=== PATIENT | female | born 1955 | race Caucasian/White ===

== ENCOUNTER 2016-11-26 09:55 | Emergency (ER) | payer OTHER ==
[~2016-11-26] VITALS: Ht 170.2 cm; Wt 82.5 kg
[2016-11-26 10:19] VITALS: Ht 170.2 cm; Wt 82.5 kg
[2016-11-26] MEDS ORDERED: ONDANSETRON 4 MG INJ IV STA (11:55)
[2016-11-26] MEDS ORDERED: SOD CHLORIDE 0.9% 1,000 ML IV STA (11:55)
[2016-11-26] MEDS ORDERED: morphine 4 MG/ML VIAL IV STA (11:55)
[2016-11-26 12:46] LABS: BASOPHILS % 0.2 % (0.0-2.0); HEMATOCRIT 39.4 % (37.0-47.0); HEMOGLOBIN 13.8 g/dl (12.0-16.0); LYMPHOCYTES # 1.1 10^3/ul (0.8-2.9); LYMPHOCYTES % 8.6 % (15.0-51.0); MEAN CORPUSCULAR VOLUME 88.5 fl (82.0-101.0); MEAN PLATELET VOLUME 10.9 fl (7.4-10.4); MONOCYTE # 0.6 10^3/ul (0.3-0.9); MONOCYTES % 4.9 % (0.0-11.0); NEUTROPHILS % 85.9 % (39.0-77.0); PLATELET COUNT 185 10^3/UL (140-415); RED BLOOD COUNT 4.45 10^6/ul (4.20-5.40); RED CELL DISTRIBUTION WIDTH 11.7 % (11.5-14.5); WHITE BLOOD COUNT 12.5 10^3/ul (4.8-10.8)
--- NOTE | 2016-11-26 12:51 | RADRPT ---
PROCEDURE: Right Upper Quadrant Ultrasound. CLINICAL INDICATION: Abdominal Pain TECHNIQUE: Multiple real-time images were acquired of the patient's right upper quadrant abdomen a nd retroperitoneum utilizing a high resolution transducer. COMPARISON: None FINDINGS: The liver measures 16.3 cm, and demonstrates moderately increased echogenicity. The main portal vein is patent with proper directional flow. There is no intrahepatic biliary ductal dilatation. The ext rahepatic common bile duct measures 3 mm. The gallbladder is without stones, wall thickening, or pericholecystic fluid. The visualized pancreas is unremarkable. The right kidney measures 10.4 x 4.7 x 5.6 cm and demonstrates normal echotexture. There is no right renal calculus or hydronephrosis. The visualized abdominal aorta and IVC are grossly unremarkable. IMPRESSION: Mild hepatomegaly with moderate fatty infiltration. No cholelithiasis or acute cholecystitis. Normal CBD. RPTAT: EE Physician Nhi Date Time Electronically viewed and signed by Physician Nhi on 11/26/2016 12:51 /
[2016-11-26 13:13] LABS: ADD UMIC YES; ALANINE AMINOTRANSFERASE 32 IU/L (13-69); ALBUMIN 4.8 g/dl (3.3-4.9); ALBUMIN/GLOBULIN RATIO 1.23; ALKALINE PHOSPHATASE 71 IU/L (42-121); ASPARTATE AMINO TRANSFERASE 28 IU/L (15-46); BILIRUBIN,INDIRECT 0.6 mg/dl (0-1.1); BILIRUBIN,TOTAL 0.6 mg/dl (0.2-1.3); BLOOD UREA NITROGEN 16 mg/dl (7-20); CALCIUM 9.9 mg/dl (8.4-10.2); CARBON DIOXIDE 24 mmol/L (21-31); CHLORIDE 93 mmol/L (97-110); CREATININE 0.98 mg/dl (0.44-1.00); GLUCOSE 207 mg/dl (70-220); TOTAL PROTEIN 8.7 g/dl (6.1-8.1); UR ASCORBIC ACID NEGATIVE (NEGATIVE); UR BACTERIA FEW /HPF (NONE SEEN); UR BILIRUBIN (Dip) NEGATIVE (NEGATIVE); UR BLOOD (Dip) 1+ mg/dL (NEGATIVE); UR CLARITY SLIGHTLY CLOUDY (CLEAR); UR COLOR YELLOW (YELLOW); UR GLUCOSE (Dip) 1+ mg/dL (NEGATIVE); UR KETONES (Dip) 1+ mg/dL (NEGATIVE); UR LEUKOCYTE ESTERASE (Dip) 2+ Leu/ul (NEGATIVE); UR NITRITE (Dip) NEGATIVE (NEGATIVE); UR RBC 1 /HPF (0-5); UR SPECIFIC GRAVITY (Dip) 1.012 (1.003-1.030); UR SQUAMOUS EPITHELIAL CELL FEW /HPF (FEW); UR TOTAL PROTEIN (Dip) NEGATIVE (NEGATIVE); UR UROBILINOGEN (Dip) NEGATIVE (NEGATIVE); UR WBC CLUMPS FEW /HPF (NONE SEEN)
[2016-11-26 13:28] LABS: TROPONIN-I < 0.012 ng/ml (0.00-0.12)
[2016-11-26] MEDS ORDERED: CEPHALEXIN 500 MG CAP PO ONE (13:30)
[2016-11-26 13:31] LABS: ANION GAP 19 (8-16); POTASSIUM 3.4 mmol/L (3.5-5.1); SODIUM 133 mmol/L (135-144)
[2016-11-26] MEDS ORDERED: POTASSIUM CHLORIDE (SR) 20 MEQ TAB PO STA (13:39)
[2016-11-26] MEDS ORDERED: IBUP-1542 PO (13:40)
[2016-11-26] MEDS ORDERED: CEPH-443 PO (13:40)
[2016-11-26] MEDS ORDERED: ONDA4TAB14 PO (13:40)
--- NOTE | 2016-11-26 13:52 | ERD ---
ER Documentation Chief Complaint Date/Time DATE: 11/26/16 TIME: 13:49 Chief Complaint ap, n/v, fever, gomez, dizziness; symptoms started yesterday HPI Patient is a 60-year-old female with hypertension, diabetes, and high cholesterol who presents with abdominal pain and dizziness. The symptoms started yesterday morning. The patient has midepigastric abdominal pain which has been constant. She had subjective fever but has not taken her temperature. She is shivering. She has had vomiting but no diarrhea. She has had no treatment as of yet. Upon review of old medical records this is the patient's first visit to the emergency department. She says that her primary doctor is at the [facility]. ROS All systems reviewed and are negative except as per history of present illness. Medications Home Meds Active Scripts Ondansetron (Ondansetron Odt) 4 Mg Tab.rapdis, 4 MG PO Q6H Y for NAUSEA AND/OR VOMITING, #10 TAB Prov:CORAL HERNANDEZ MD 11/26/16 Ibuprofen* (Motrin*) 600 Mg Tab, 600 MG PO Q8, #30 TAB Prov:CORAL HERNANDEZ MD 11/26/16 Cephalexin* (Keflex*) 500 Mg Capsule, 500 MG PO QID for 7 Days, CAP Prov:CORAL HERNANDEZ MD 11/26/16 Allergies Allergies: Coded Allergies: No Known Allergy (Unverified , 11/26/16) PMhx/Soc History of Surgery: Yes (hysterectomy) Anesthesia Reaction: No Hx Neurological Disorder: No Hx Respiratory Disorders: No Hx Cardiac Disorders: Yes (htn, high cholesterol) Hx Psychiatric Problems: No Hx Miscellaneous Medical Probl: Yes (dm) Hx Alcohol Use: No Hx Substance Use: No Hx Tobacco Use: No Smoking Status: Never smoker FmHx Family History: diabetes Physical Exam Vitals Vital Signs Date Time Temp Pulse Resp B/P Pulse Ox O2 Delivery O2 Flow Rate FiO2 11/26/16 10:19 98.6 92 18 137/83 99 Physical Exam Const: Shivering Head: Atraumatic Eyes: Normal Conjunctiva ENT: Normal External Ears, Nose and Mouth. Neck: Full range of motion..~ No meningismus. Resp: Clear to auscultation bilaterally Cardio: Regular rate and rhythm, no murmurs Abd: Soft, Midepigastric tenderness to palpation without rebound or guarding Skin: No petechiae or rashes Back: No midline or flank tenderness Ext: No cyanosis, or edema Neur: Awake and alert Psych: Normal Mood and Affect Result Diagram: 11/26/16 1225 11/26/16 1225 Results 24 hrs Laboratory Tests Test 11/26/16 12:25 White Blood Count 12.510^3/ul Red Blood Count 4.4510^6/ul Hemoglobin 13.8g/dl Hematocrit 39.4% Mean Corpuscular Volume 88.5fl Mean Corpuscular Hemoglobin 31.0pg Mean Corpuscular Hemoglobin Concent 35.0g/dl Red Cell Distribution Width 11.7% Platelet Count 99509^3/UL Mean Platelet Volume 10.9fl Neutrophils % 85.9% Lymphocytes % 8.6% Monocytes % 4.9% Eosinophils % 0.0% Basophils % 0.2% Nucleated Red Blood Cells % 0.0/100WBC Neutrophils # (Manual) 10.710^3/ul Lymphocytes # 1.110^3/ul Monocytes # 0.610^3/ul Eosinophils # 0.010^3/ul Basophils # 0.010^3/ul Nucleated Red Blood Cells # 0.010^3/ul Urine Color YELLOW Urine Clarity SLIGHTLY CLOUDY Urine pH 5.0 Urine Specific [place] 1.012 Urine Ketones 1+mg/dL Urine Nitrite NEGATIVEmg/dL Urine Bilirubin NEGATIVEmg/dL Urine Urobilinogen NEGATIVEmg/dL Urine Leukocyte Esterase 2+Stephen/ul Urine Microscopic RBC 1/HPF Urine Microscopic WBC 22/HPF Urine Squamous Epithelial Cells FEW/HPF Urine Bacteria FEW/HPF Urine Hemoglobin 1+mg/dL Urine Glucose 1+mg/dL Urine Total Protein NEGATIVEmg/dl Sodium Level 133mmol/L Potassium Level 3.4mmol/L Chloride Level 93mmol/L Carbon Dioxide Level 24mmol/L Anion Gap 19 Blood Urea Nitrogen 16mg/dl Creatinine 0.98mg/dl Glucose Level 207mg/dl Calcium Level 9.9mg/dl Total Bilirubin 0.6mg/dl Direct Bilirubin 0.00mg/dl Indirect Bilirubin 0.6mg/dl Aspartate Amino Transf (AST/SGOT) 28IU/L Alanine Aminotransferase (ALT/SGPT) 32IU/L Alkaline Phosphatase 71IU/L Troponin I < 0.012ng/ml Total Protein 8.7g/dl Albumin 4.8g/dl Globulin 3.90g/dl Albumin/Globulin Ratio 1.23 Lipase 288U/L Current Medications Medications (Trade) Dose Ordered Sig/Ester Route PRN Reason Start Time Stop Time Status Last Admin Dose Admin Sodium Chloride (NS) 1,000 ml @ 1,000 mls/hr Q1H STAT IV 11/26/16 11:55 11/26/16 12:54 DC 11/26/16 12:22 Morphine Sulfate (morphine) 4 mg ONCE STAT IV 11/26/16 11:55 11/26/16 11:56 DC 11/26/16 12:22 Ondansetron HCl (Zofran Inj) 4 mg ONCE STAT IV 11/26/16 11:55 11/26/16 11:56 DC 11/26/16 12:22 Cephalexin (Keflex) 500 mg ONCE ONCE PO 11/26/16 13:30 11/26/16 13:31 DC Potassium Chloride (Klor-Con 20) 40 meq ONCE STAT PO 11/26/16 13:39 11/26/16 13:46 DC Acetaminophen (Tylenol Tab) 650 mg ONCE ONCE PO 11/26/16 14:00 11/26/16 14:01 Procedures/MDM PROCEDURE: Right Upper Quadrant Ultrasound. CLINICAL INDICATION: Abdominal Pain TECHNIQUE: Multiple real-time images were acquired of the patient's right upper quadrant abdomen and retroperitoneum utilizing a high resolution transducer. COMPARISON: None FINDINGS: The liver measures 16.3 cm, and demonstrates moderately increased echogenicity. The main portal vein is patent with proper directional flow. There is no intrahepatic biliary ductal dilatation. The extrahepatic common bile duct measures 3 mm. The gallbladder is without stones, wall thickening, or pericholecystic fluid. The visualized pancreas is unremarkable. The right kidney measures 10.4 x 4.7 x 5.6 cm and demonstrates normal echotexture. There is no right renal calculus or hydronephrosis. The visualized abdominal aorta and IVC are grossly unremarkable. IMPRESSION: Mild hepatomegaly with moderate fatty infiltration. No cholelithiasis or acute cholecystitis. Normal CBD. RPTAT: EE Jay Jay Duque, Physician Date Time Electronically viewed and signed by Jay Jay Duque, Physician on 11/26/2016 12:51 Patient is a 60-year-old female with diabetes and hypertension as well as high cholesterol who presents with abdominal pain and dizziness. She was found to have acute cystitis. She was also found to have a mildly elevated white blood cell count of 12.5 and a low potassium of 3.4. She was also found to have a mild low sodium. The patient was given normal saline fluid resuscitation, potassium by mouth, and Keflex by mouth. I did offer and recommend admission but the patient is refusing would prefer to go home at this time. I believe an outpatient treatment of antibiotics is reasonable at this time but a urine culture will be sent. I did tell the patient that she could return for any worsening symptoms or if she wanted to be admitted. At this point I doubt sepsis but the shivering was concerning for possible rigors which is why I wanted to admit her in the first place. I doubt cholecystitis, pancreatitis, appendicitis, or bowel obstruction. Departure Diagnosis: Primary Impression: Cystitis Additional Impression: Abdominal pain Abdominal location: epigastric Qualified Code: R10.13 - Epigastric pain Condition: Fair Patient Instructions: Abdominal Pain, Cystitis Referrals: Your doctor Additional Instructions: Llame al doctor MAANA y byron redd MARTÍN PARA DENTRO DE 1-2 JAVED.Dgale a la secretaria que nosotros le instruimos hacer esta martín.Avise o llame si bolaños condicin se empeora antes de la martín. Regresa aqui si peor o no mejor. CORAL HERNANDEZ MD Nov 26, 2016 13:52
[2016-11-26] MEDS ORDERED: ACETAMINOPHEN 325 MG TAB PO ONE (14:00)
[2016-11-26 14:25] VITALS: BP 158/95; PULSE 98; RESP 17; TEMP 99
== END 2016-11-26 14:26 | disposition home or self-care (01) ==
LOC: E/R 09:55
DX: N30.90 Cystitis, unspecified without hematuria (principal); E11.9 Type 2 diabetes mellitus without complications; I10 Essential (primary) hypertension
CPT/HCPCS: 36415; 76705; 80053; 81001; 83690; 84484; 85025; 87086; 96374; 96375; 99285; J2270; J2405; J7030

== ENCOUNTER 2016-11-28 09:18 | Emergency (ER) | payer OTHER ==
[~2016-11-28] VITALS: Ht 165.1 cm; Wt 85.0 kg
[~2016-11-28 09:18] MED LIST: CEPH-443 PO; IBUP-1542 PO; ONDA4TAB14 PO
[2016-11-28 09:21] VITALS: Ht 165.1 cm; Wt 85.0 kg
--- NOTE | 2016-11-28 10:50 | ERD ---
ER Documentation Chief Complaint Date/Time DATE: 11/28/16 TIME: 10:46 Chief Complaint loss of appetite x 1 week; feels dizzy HPI Patient is a 60-year-old female who presents to the ER with gradual onset, constant, moderate dizziness that she describes as feeling like her balance is off for the last 3 days. She was seen in the ER 2 days ago and diagnosed with urinary tract infection. She was prescribed antibiotics, but states that her symptoms have not improved. She denies fever. She reports having vomiting on her initial ER visit, but states that she has not had any further vomiting since discharge. She denies headache, double vision, focal weakness or numbness. She denies hearing loss or tinnitus. She denies abdominal pain. ROS All systems reviewed and are negative except as per history of present illness. Medications Home Meds Active Scripts Meclizine Hcl* (Meclizine Hcl*) 25 Mg Tablet, 25 MG PO Q8H Y for DIZZINESS, #21 TAB Prov:ALEJANDRA PENA MD 11/28/16 Ondansetron (Ondansetron Odt) 4 Mg Tab.rapdis, 4 MG PO Q6H Y for NAUSEA AND/OR VOMITING, #10 TAB Prov:CORAL HERNANDEZ MD 11/26/16 Ibuprofen* (Motrin*) 600 Mg Tab, 600 MG PO Q8, #30 TAB Prov:CORAL HERNANDEZ MD 11/26/16 Cephalexin* (Keflex*) 500 Mg Capsule, 500 MG PO QID for 7 Days, CAP Prov:CORAL HERNANDEZ MD 11/26/16 Allergies Allergies: Coded Allergies: No Known Allergy (Unverified , 11/26/16) PMhx/Soc Past medical history: Diabetes mellitus, hypertension Past surgical history: Denies Social history: Denies tobacco or alcohol History of Surgery: No Anesthesia Reaction: No Hx Neurological Disorder: No Hx Respiratory Disorders: No Hx Cardiac Disorders: No Hx Psychiatric Problems: No Hx Miscellaneous Medical Probl: No Hx Alcohol Use: No Hx Substance Use: No Hx Tobacco Use: No Smoking Status: Never smoker FmHx Family History: No coronary disease, No diabetes Physical Exam Vitals Vital Signs Date Time Temp Pulse Resp B/P Pulse Ox O2 Delivery O2 Flow Rate FiO2 11/28/16 09:21 98.6 90 18 150/93 97 Physical Exam Const: Alert, no acute distress Head: Atraumatic Eyes: Normal Conjunctiva, No pallor, no icterus ENT: Normal External Ears, Nose and Mouth. Mucous membranes moist.Normal tympanic membranes bilaterally. Neck: Full range of motion..~ No meningismus. Resp: Clear to auscultation bilaterally, No wheezes, no rales Cardio: Regular rate and rhythm, no murmurs Abd: Soft, non tender, non distended. Skin: No petechiae or rashes Back: No midline or flank tenderness Ext: No cyanosis, or edema Neur: Awake and alert, Cranial nerves II through XII intact bilaterally, strength and sensation full in 4 extremities, no pronator drift, no dysmetria, no nystagmus, extraocular movements intact without diplopia Psych: Normal Mood and Affect Result Diagram: 11/28/16 1125 Results 24 hrs Laboratory Tests Test 11/28/16 10:49 11/28/16 11:25 11/28/16 14:10 Urine Color YELLOW Urine Clarity CLEAR Urine pH 5.5 Urine Specific [place] 1.010 Urine Ketones NEGATIVEmg/dL Urine Nitrite NEGATIVEmg/dL Urine Bilirubin NEGATIVEmg/dL Urine Urobilinogen 0.2 E.U./dLmg/dL Urine Leukocyte Esterase TRACELeu/ul Urine Microscopic RBC 2-5/HPF Urine Microscopic WBC 10-25/HPF Urine Squamous Epithelial Cells FEW/HPF Urine Hemoglobin TRACEmg/dL Urine Glucose 1+mg/dL Urine Total Protein NEGATIVEmg/dl Sodium Level 137mmol/L Potassium Level 3.3mmol/L Chloride Level 102mmol/L Carbon Dioxide Level 21mmol/L Anion Gap 17 Blood Urea Nitrogen 15mg/dl Creatinine 0.98mg/dl Glucose Level 275mg/dl Calcium Level 9.7mg/dl Bedside Glucose 217mg/dL Current Medications Medications (Trade) Dose Ordered Sig/Ester Route PRN Reason Start Time Stop Time Status Last Admin Dose Admin Meclizine HCl (Antivert) 25 mg ONCE ONCE PO 11/28/16 11:00 11/28/16 11:01 DC 11/28/16 11:14 Potassium Chloride (Klor-Con 20) 20 meq ONCE STAT PO 11/28/16 12:25 11/28/16 12:32 DC 11/28/16 13:19 Insulin Human Regular (Humulin R) 5 unit ONCE ONCE SC 9/14/17 12:30 11/28/16 12:32 DC Miscellaneous Information 1 ea NOTE XX 11/28/16 13:00 Glucose (Glutose) 15 gm Q15M PRN PO DECREASED GLUCOSE 11/28/16 13:00 Glucose (Glutose) 22.5 gm Q15M PRN PO DECREASED GLUCOSE 11/28/16 13:00 Dextrose (D50w Syringe) 25 ml Q15M PRN IV DECREASED GLUCOSE 11/28/16 13:00 Dextrose (D50w Syringe) 50 ml Q15M PRN IV DECREASED GLUCOSE 11/28/16 13:00 Glucagon (Glucagen) 1 mg Q15M PRN IM DECREASED GLUCOSE 11/28/16 13:00 Glucose 15 gm 15 gm Q15M PRN BUCCAL DECREASED GLUCOSE 11/28/16 13:00 Sodium Chloride (NS) 1,000 ml @ 1,000 mls/hr Q1H ONCE IV 11/28/16 13:30 11/28/16 14:29 DC 11/28/16 14:02 Procedures/MDM MDM: Patient is a 60-year-old female who presents with dizziness described as loss of balance in the setting of urinary tract infection diagnosed 2 days ago. She is on Keflex. She denies fever vomiting. She denies headache or other neurological symptoms and has no neurologic deficits. Her labs are unremarkable except for hyperglycemia and mild hypokalemia. The patient states that she has not taken her diabetic medication for the last 3 days, but that she has a supply at home. She was encouraged to take all of her medications as prescribed. In the ER, she was given a dose of meclizine and a liter of fluid and states that her symptoms have resolved. There are no signs of sepsis or features that are concerning for a central etiology of vertigo. The patient has no associated tinnitus or loss of hearing. She is advised to follow-up closely with her PMD. Departure Diagnosis: Primary Impression: Vertigo Additional Impression: Hypokalemia Condition: ALEJANDRA Mehta MD Nov 28, 2016 10:50
[2016-11-28] MEDS ORDERED: MECLIZINE 12.5 MG TAB PO ONE (11:00)
[2016-11-28 11:45] LABS: UR CLARITY CLEAR (CLEAR); UR COLOR YELLOW (YELLOW)
[2016-11-28 11:46] LABS: ADD UMIC YES; UR BILIRUBIN (Dip) NEGATIVE (NEGATIVE); UR BLOOD (Dip) TRACE mg/dL (NEGATIVE); UR GLUCOSE (Dip) 1+ mg/dL (NEGATIVE); UR KETONES (Dip) NEGATIVE (NEGATIVE); UR LEUKOCYTE ESTERASE (Dip) TRACE Leu/ul (NEGATIVE); UR NITRITE (Dip) NEGATIVE (NEGATIVE); UR TOTAL PROTEIN (Dip) NEGATIVE (NEGATIVE); UR UROBILINOGEN (Dip) 0.2 E.U./dL mg/dL (NEGATIVE)
[2016-11-28 11:48] LABS: UR SQUAMOUS EPITHELIAL CELL FEW /HPF (FEW)
[2016-11-28 11:58] LABS: CALCIUM 9.7 mg/dl (8.4-10.2); CREATININE 0.98 mg/dl (0.44-1.00); POTASSIUM 3.3 mmol/L (3.5-5.1)
[2016-11-28] MEDS ORDERED: POTASSIUM CHLORIDE (SR) 20 MEQ TAB PO STA (12:25)
[2016-11-28] MEDS ORDERED: INSULIN REGULAR, HUMAN 100 UNIT/1 ML 3ML VIAL SC ONE (12:30)
[2016-11-28] MEDS ORDERED: GLUCAGON 1 MG INJ IM PRN (13:00)
[2016-11-28] MEDS ORDERED: GLUCOSE GEL 15 GRAM TUBE BUCCAL PRN (13:00)
[2016-11-28] MEDS ORDERED: GLUCOSE GEL 15 GRAM TUBE PO PRN ×2 (13:00)
[2016-11-28] MEDS ORDERED: DEXTROSE 50% 50 ML SYRINGE IV PRN ×2 (13:00)
[2016-11-28] MEDS ORDERED: SOD CHLORIDE 0.9% 1,000 ML IV ONE (13:30)
[2016-11-28] MEDS ORDERED: MECL-77 PO (14:26)
[2016-11-28 14:59] VITALS: BP 185/91; PULSE 91; RESP 20; TEMP 98.3
== END 2016-11-28 15:01 | disposition home or self-care (01) ==
LOC: E/R 09:18
DX: R42 Dizziness and giddiness (principal); E87.6 Hypokalemia; E11.9 Type 2 diabetes mellitus without complications; I10 Essential (primary) hypertension
CPT/HCPCS: 80048; 81001; 82962; 87086; 99284; J7030

== ENCOUNTER 2016-12-09 18:22 | Inpatient (IN) | payer OTHER ==
[~2016-12-09] VITALS: Ht 170.2 cm; Wt 85.6 kg
[~2016-12-09 18:22] MED LIST changes: +MECL-77 PO
[2016-12-09] MEDS ORDERED: GLIP-95 PO (21:53)
[2016-12-09] MEDS ORDERED: LISI40TA9 PO (21:53)
[2016-12-09] MEDS ORDERED: SIMV20TA PO (21:54)
[2016-12-09] MEDS ORDERED: SITA1TAB5 PO (21:55)
[2016-12-09] MEDS ORDERED: ASPI81TA50 PO (21:55)
[2016-12-09 22:34] LABS: ALANINE AMINOTRANSFERASE 37 IU/L (13-69); ALBUMIN 4.6 g/dl (3.3-4.9); ALBUMIN/GLOBULIN RATIO 1.24; ALKALINE PHOSPHATASE 76 IU/L (42-121); ANION GAP 15 (8-16); ASPARTATE AMINO TRANSFERASE 25 IU/L (15-46); BILIRUBIN,INDIRECT 0.3 mg/dl (0-1.1); BILIRUBIN,TOTAL 0.3 mg/dl (0.2-1.3); BLOOD UREA NITROGEN 17 mg/dl (7-20); CARBON DIOXIDE 26 mmol/L (21-31); CHLORIDE 82 mmol/L (97-110); CREATININE 0.72 mg/dl (0.44-1.00); GLUCOSE 142 mg/dl (70-220); POTASSIUM 3.6 mmol/L (3.5-5.1); TOTAL PROTEIN 8.3 g/dl (6.1-8.1)
[2016-12-09 22:59] LABS: TROPONIN-I < 0.012 ng/ml (0.00-0.12)
[2016-12-09 23:01] LABS: SODIUM 119 mmol/L (135-144)
[2016-12-09] MEDS ORDERED: SOD CHLORIDE 0.9% 500 ML IV STA (23:02)
[2016-12-09 23:03] LABS: BASOPHIL # 0.1 10^3/ul (0.0-0.1); BASOPHILS % 0.5 % (0.0-2.0); EOSINOPHILS # 0.1 10^3/ul (0.0-0.5); EOSINOPHILS % 1.2 % (0.0-7.0); HEMATOCRIT 35.8 % (37.0-47.0); HEMOGLOBIN 13.3 g/dl (12.0-16.0); LYMPHOCYTES # 2.7 10^3/ul (0.8-2.9); LYMPHOCYTES % 22.2 % (15.0-51.0); MEAN CORPUSCULAR HGB CONC 37.2 g/dl (32.0-37.0); MEAN CORPUSCULAR VOLUME 86.1 fl (82.0-101.0); MEAN PLATELET VOLUME 10.2 fl (7.4-10.4); MONOCYTE # 0.9 10^3/ul (0.3-0.9); MONOCYTES % 7.2 % (0.0-11.0); NEUTROPHIL # 8.3 10^3/ul (1.6-7.5); NEUTROPHILS % 68.4 % (39.0-77.0); PLATELET COUNT 286 10^3/UL (140-415); RED BLOOD COUNT 4.16 10^6/ul (4.20-5.40); RED CELL DISTRIBUTION WIDTH 11.2 % (11.5-14.5); WHITE BLOOD COUNT 12.1 10^3/ul (4.8-10.8)
--- NOTE | 2016-12-09 23:07 | RADRPT ---
PROCEDURE: XR Chest. CLINICAL INDICATION: Headache. TECHNIQUE: AP view of the chest was obtained. COMPARISON: None available FINDINGS: The cardiomediastinal silhouette is within normal limits. The lungs are clear. No signs of pleural f luid or pneumothorax are seen. The osseous structures and soft tissues are unremarkable. IMPRESSION: 1. No evidence for active cardiopulmonary disease. RPTAT: HGAS .Raleigh Khoury MD, MD Date Time Electronically viewed and signed by .Raleigh Khoury MD, on 12/09/2016 23:07 .S/
--- NOTE | 2016-12-09 23:07 | RADRPT ---
PROCEDURE: CT Head without. CLINICAL INDICATION: Headache. TECHNIQUE: The study was performed utilizing a multi-slice, multidetector CT scanner. Direct spira l 1 mm axial sections were obtained through the head without the use of intravenous contrast materia l. 1 or more of the following dose reduction techniques were utilized: Automated exposure control, adjustment of the mA and/or kV according to patient's size, iterative reconstruction technique. Co lory and sagittal reformations were obtained. The images were reviewed on a PACS workstation. RADIATION DOSE: CTDIvol: 44.6 mGyDLP: 720.2 mGy-cm COMPARISON: No prior studies are available for comparison. FINDINGS: There is a mild amount of motion artifact and in the mid cranial vault, with mild initiation at this level. There is no intracranial hemorrhage, extra-axial fluid collection, mass lesion, midline shif t or hydrocephalus. The ventricles, sulci and cisterns are within normal limits. The white matter is unremarkable. The mcmillan-white matter differentiation is preserved. The basal cisterns are patent . The midline structures are intact. The orbits, calvarium and extracranial soft tissues are felix l in appearance. The visualized paranasal sinuses, mastoid air cells and middle ear cavities are nor ty aerated. IMPRESSION: 1. No acute intracranial abnormality. No intracranial hemorrhage, extra-axial fluid collection, ma ss lesion or hydrocephalous. RPTAT: HGAS .Raleigh Khoury MD, MD Date Time Electronically viewed and signed by .Raleigh Khoury MD, on 12/09/2016 23:07 .S/
[2016-12-10] VITALS (10 sets, daily range): BP systolic 101–119; BP diastolic 60–93; PULSE 75–87; RESP 19–20; TEMP 97.4; Ht 170.2 cm; Wt 85.6 kg
--- NOTE | 2016-12-10 00:17 | ERA ---
ER Documentation Chief Complaint Date/Time DATE: 12/10/16 TIME: 00:15 Chief Complaint PMD STATED LOW SODIUM, SLURRED SPEECH AT TIMES, DIZZINESS HPI This is a 60-year-old female comes in saying she has been very dizzy and lethargic over the past few weeks. She was seen by PMD today and found to be hyponatremic to 116. PMD sensory and immediately for evaluation. She denies any chest pain nausea vomiting fevers chills or focal weakness, however she does say she feels very lethargic. Denies any abdominal pain. Denies any other complaints. No visual acuity changes. ROS All systems reviewed and are negative except as per history of present illness. Medications Home Meds Reported Medications Sitagliptin Phos/Metformin HCl (Janumet 50-1,000 mg Tablet) 1 Each Tablet, 1 EACH PO BID, TAB 12/09/16 Aspirin (Aspir-Low) 81 Mg Tablet.dr, 81 MG PO DAILY 12/09/16 Simvastatin* (Zocor*) 20 Mg Tablet, 20 MG PO QHS, #30 TAB 12/09/16 Glipizide* (Glipizide*) 10 Mg Tablet, 10 MG PO AC BREAKFAST DINNER, TAB 12/09/16 Lisinopril* (Lisinopril*) 40 Mg Tablet, 40 MG PO DAILY, #30 TAB 12/09/16 Discontinued Scripts Meclizine Hcl* (Meclizine Hcl*) 25 Mg Tablet, 25 MG PO Q8H Y for DIZZINESS, #21 TAB Prov:ALEJANDRA PENA MD 11/28/16 Ondansetron (Ondansetron Odt) 4 Mg Tab.rapdis, 4 MG PO Q6H Y for NAUSEA AND/OR VOMITING, #10 TAB Prov:CORAL HERNANDEZ MD 11/26/16 Ibuprofen* (Motrin*) 600 Mg Tab, 600 MG PO Q8, #30 TAB Prov:CORAL HERNANDEZ MD 11/26/16 Cephalexin* (Keflex*) 500 Mg Capsule, 500 MG PO QID for 7 Days, CAP Prov:CORAL HERNANDEZ MD 11/26/16 Allergies Allergies: Coded Allergies: No Known Allergy (Unverified , 12/09/16) PMhx/Soc History of Surgery: No Anesthesia Reaction: No Hx Neurological Disorder: No Hx Respiratory Disorders: No Hx Cardiac Disorders: Yes (HTN, ELEV. CHOLESTEROL) Hx Psychiatric Problems: Yes (MILD ANXIETY ) Hx Miscellaneous Medical Probl: No Hx Alcohol Use: No Hx Substance Use: No Hx Tobacco Use: No Smoking Status: Never smoker Physical Exam Vitals Vital Signs Date Time Temp Pulse Resp B/P Pulse Ox O2 Delivery O2 Flow Rate FiO2 12/09/16 23:14 97.4 82 15 119/79 100 Room Air 12/09/16 22:58 82 15 120/79 100 Room Air 12/09/16 21:15 97.4 92 16 121/70 97 Room Air 12/09/16 18:47 98.9 102 16 131/82 97 Physical Exam Const: [] Head: Atraumatic Eyes: Normal Conjunctiva ENT: Normal External Ears, Nose and Mouth. Neck: Full range of motion..~ No meningismus. Resp: Clear to auscultation bilaterally Cardio: Regular rate and rhythm, no murmurs Abd: Soft, non tender, non distended. Normal bowel sounds Skin: No petechiae or rashes Back: No midline or flank tenderness Ext: No cyanosis, or edema Neur: Awake and alert Psych: Normal Mood and Affect Result Diagram: 12/09/16215312/09/162153 Results 24 hrs Laboratory Tests Test 12/09/16 21:54 White Blood Count 12.110^3/ul Red Blood Count 4.1610^6/ul Hemoglobin 13.3g/dl Hematocrit 35.8% Mean Corpuscular Volume 86.1fl Mean Corpuscular Hemoglobin 32.0pg Mean Corpuscular Hemoglobin Concent 37.2g/dl Red Cell Distribution Width 11.2% Platelet Count 49283^3/UL Mean Platelet Volume 10.2fl Neutrophils % 68.4% Lymphocytes % 22.2% Monocytes % 7.2% Eosinophils % 1.2% Basophils % 0.5% Nucleated Red Blood Cells % 0.0/100WBC Neutrophils # 8.310^3/ul Lymphocytes # 2.710^3/ul Monocytes # 0.910^3/ul Eosinophils # 0.110^3/ul Basophils # 0.110^3/ul Nucleated Red Blood Cells # 0.010^3/ul Sodium Level 119mmol/L Potassium Level 3.6mmol/L Chloride Level 82mmol/L Carbon Dioxide Level 26mmol/L Anion Gap 15 Blood Urea Nitrogen 17mg/dl Creatinine 0.72mg/dl Glucose Level 142mg/dl Calcium Level 10.0mg/dl Total Bilirubin 0.3mg/dl Direct Bilirubin 0.00mg/dl Indirect Bilirubin 0.3mg/dl Aspartate Amino Transf (AST/SGOT) 25IU/L Alanine Aminotransferase (ALT/SGPT) 37IU/L Alkaline Phosphatase 76IU/L Troponin I < 0.012ng/ml Total Protein 8.3g/dl Albumin 4.6g/dl Globulin 3.70g/dl Albumin/Globulin Ratio 1.24 Lipase 655U/L Current Medications Medications (Trade) Dose Ordered Sig/Ester Route PRN Reason Start Time Stop Time Status Last Admin Dose Admin Sodium Chloride (NS) 500 ml @ 500 mls/hr Q1H STAT IV 12/09/16 23:02 12/10/16 00:01 DC 12/09/16 23:39 Procedures/MDM Chest X-ray 1V Interpreted by me: Soft Tissue: No acute abnormalities Bones: No acute abnormalities Mediastinum/Cardiac Silhouette/Lungs: [No acute abnormalities] EKG: Rate/Rhythm: [Normal Sinus Rhythm] QRS, ST, T-waves: [No changes consistent w/ acute ischemia] Impression: [No evidence of ischemia or arrhythmia] Medical decision-making: This is a very pleasant patient who has what looks with severe hyponatremia. She has been hydrated with normal saline. Also has evidence of early pancreatitis based on lipase. Patient will be admitted to hospitalist for further evaluation and management. Departure Diagnosis: Primary Impression: Hyponatremia Additional Impression: Pancreatitis Qualified Code: K85.90 - Acute pancreatitis, unspecified complication status, unspecified pancreatitis type Condition: Serious VENUS EDUARDO Dec 10, 2016 00:17
[2016-12-10 01:09] LABS: ADD UMIC NO; UR ASCORBIC ACID NEGATIVE (NEGATIVE); UR BILIRUBIN (Dip) NEGATIVE (NEGATIVE); UR BLOOD (Dip) NEGATIVE (NEGATIVE); UR CLARITY CLEAR (CLEAR); UR COLOR STRAW (YELLOW); UR GLUCOSE (Dip) NEGATIVE (NEGATIVE); UR KETONES (Dip) NEGATIVE (NEGATIVE); UR LEUKOCYTE ESTERASE (Dip) NEGATIVE Leu/ul (NEGATIVE); UR NITRITE (Dip) NEGATIVE (NEGATIVE); UR SPECIFIC GRAVITY (Dip) 1.005 (1.003-1.030); UR TOTAL PROTEIN (Dip) NEGATIVE (NEGATIVE); UR UROBILINOGEN (Dip) NEGATIVE (NEGATIVE)
[2016-12-10] MEDS ORDERED: LORAZEPAM 2 MG INJ IV PRN (04:30)
[2016-12-10] MEDS ORDERED: ACETAMINOPHEN 325 MG TAB PO PRN (04:30)
[2016-12-10] MEDS ORDERED: ONDANSETRON 4 MG INJ IV PRN (04:30)
[2016-12-10] MEDS ORDERED: ALBUTEROL/IPRATROPIUM (NEB) 3 ML AMP HHN PRN (04:30)
[2016-12-10] MEDS ORDERED: morphine 2 MG INJ IV PRN (04:30)
[2016-12-10] MEDS ORDERED: NACL 0.9% 3 ML SYG IV SCH (04:30)
[2016-12-10] MEDS ORDERED: GLUCAGON 1 MG INJ IM PRN (05:30)
[2016-12-10] MEDS ORDERED: DEXTROSE 50% 50 ML SYRINGE IV PRN ×2 (05:30)
[2016-12-10] MEDS ORDERED: GLUCOSE GEL 15 GRAM TUBE BUCCAL PRN (05:30)
[2016-12-10] MEDS ORDERED: GLUCOSE GEL 15 GRAM TUBE PO PRN ×2 (05:30)
[2016-12-10] MEDS: SOD CHLORIDE 0.9% 1,000 ML IV SCH ×2 (05:32→14:59)
[2016-12-10 08:39] LABS: BASOPHILS % 0.4 % (0.0-2.0); EOSINOPHILS # 0.1 10^3/ul (0.0-0.5); EOSINOPHILS % 1.2 % (0.0-7.0); HEMATOCRIT 32.1 % (37.0-47.0); HEMOGLOBIN 11.8 g/dl (12.0-16.0); LYMPHOCYTES # 1.4 10^3/ul (0.8-2.9); LYMPHOCYTES % 16.6 % (15.0-51.0); MEAN CORPUSCULAR HGB CONC 36.8 g/dl (32.0-37.0); MEAN PLATELET VOLUME 9.9 fl (7.4-10.4); MONOCYTE # 0.6 10^3/ul (0.3-0.9); MONOCYTES % 7.4 % (0.0-11.0); NEUTROPHIL # 6.1 10^3/ul (1.6-7.5); NEUTROPHILS % 74.2 % (39.0-77.0); PLATELET COUNT 241 10^3/UL (140-415); RED BLOOD COUNT 3.69 10^6/ul (4.20-5.40); RED CELL DISTRIBUTION WIDTH 11.3 % (11.5-14.5); WHITE BLOOD COUNT 8.2 10^3/ul (4.8-10.8)
[2016-12-10] MEDS: INSULIN GLARGINE [LANtus] 3 ML PEN SC SCH (09:10)
[2016-12-10 09:12] LABS: POTASSIUM,URINE RANDOM 10.2 mmol/L (25-125)
[2016-12-10 09:12] LABS: ALBUMIN 3.7 g/dl (3.3-4.9); ALBUMIN/GLOBULIN RATIO 1.19; BILIRUBIN,INDIRECT 0.3 mg/dl (0-1.1); BILIRUBIN,TOTAL 0.3 mg/dl (0.2-1.3); CREATININE 0.79 mg/dl (0.44-1.00); MAGNESIUM 1.5 mg/dl (1.7-2.5); POTASSIUM 3.6 mmol/L (3.5-5.1); TOTAL PROTEIN 6.8 g/dl (6.1-8.1)
[2016-12-10] MEDS: ASPIRIN 81 MG TAB PO SCH (09:23)
[2016-12-10] MEDS: LISINOPRIL 20 MG TAB PO SCH (09:23)
[2016-12-10] MEDS: INSULIN ASPART [NOVOLOG] 3 ML PEN SC SCH ×4 (09:27→21:07)
[2016-12-10 09:45] LABS: CHOL/HDL RATIO 4.5 RATIO; URIC ACID 5.4 mg/dl (3.1-7.9)
--- NOTE | 2016-12-10 09:56 | HP ---
Date/Time of Note Date/Time of Note DATE: 12/10/16 TIME: 09:51 Assessment/Plan VTE Prophylaxis VTE Prophylaxis Intervention: SCD's Lines/Catheters Urinary Cath still in place: No Assessment/Plan Assessment/Plan 1. Hyponatremia -Check urine sodium, osmolarity, uric acid -Nephrology consult -NS IVF 2. Generalized weakness/dizziness -Likely secondary to above. Head CT negative for acute findings. Additional imaging as needed -Treat hyponatremia -Physical therapy 3. History of hypertension -Continue home meds with adjustment as needed 4. Type 2 diabetes -Check A1c. Insulin while in-house 5. History of dyslipidemia -Continue statin HPI/ROS Admit Date/Time Admit Date/Time Dec 09, 2016 at 23:58 Hx of Present Illness This is a 60-year-old female with a history of hypertension, type 2 diabetes, dyslipidemia who presented to the emergency department after she was sent from clinic for hyponatremia. Over the past several weeks, patient had been feeling weak, dizzy as long as gait instability. She was actually seen in our ER twice over the past 2 weeks and at one time she was diagnosed with UTI. She was seen in the clinic where she was found to have a sodium of 116 and sent here for evaluation. About 2 weeks ago here, sodium was 137. CT of the head done today showed no acute findings. Sodium is 119, WBC 12,000. PMH/Family/Social Social History Smoking Status: Never smoker Exam/Review of Systems Vital Signs Vitals Vital Signs Date Time Temp Pulse Resp B/P Pulse Ox O2 Delivery O2 Flow Rate FiO2 12/10/16 08:35 81 12/10/16 07:45 97.5 20 108/60 95 12/10/16 03:58 Room Air Labs Result Diagram: 12/10/16 0801 12/10/16 0801 Medications Medications Current Medications Sodium Chloride (NS) 1,000 ml @ 100 mls/hr Q10H IV Last administered on t 05:32; Admin Dose 100 MLS/HR; Start 12/10/16 at 04:19 Lorazepam (Ativan) 0.5 mg Q6H PRN IV ANXIETY; Start 12/10/16 at 04:30 Ondansetron HCl (Zofran Inj) 4 mg Q6H PRN IV NAUSEA AND/OR VOMITING; Start at 04:30 Aspirin (Aspirin) 81 mg DAILY PO Last administered on 12/10/16 09:23; Admin Dose 81 MG; Start 12/10/16 at 09:00 Acetaminophen (Tylenol Tab) 650 mg Q6H PRN PO PAIN LEVEL 1-3 OR FEVER; Start at 04:30 Morphine Sulfate (morphine) 2 mg Q4H PRN IV PAIN LEVEL 7-10; Start 12/10/16 at 04:30 Diagnostic Test (Pha) (Accu-Chek) 1 ea 02 XX ; Start 12/11/16 at 02:00 Insulin Glargine (Lantus) 12 unit DAILY@08 SC ; Start 12/10/16 at 08:00 Lisinopril (Zestril) 40 mg DAILY PO Last administered on 12/10/16 09:23; Admin Dose 40 MG; Start 12/10/16 at 09:00 Atorvastatin Calcium (Lipitor) 10 mg QHS PO ; Start 12/10/16 at 21:00 Diagnostic Test (Pha) (Accu-Chek) 1 ea 02 XX ; Start 12/11/16 at 02:00 Miscellaneous Information 1 ea NOTE XX ; Start 12/10/16 at 05:30 Glucose (Glutose) 15 gm Q15M PRN PO DECREASED GLUCOSE; Start 12/10/16 at 05:30 Glucose (Glutose) 22.5 gm Q15M PRN PO DECREASED GLUCOSE; Start 12/10/16 at 05: 30 Dextrose (D50w Syringe) 25 ml Q15M PRN IV DECREASED GLUCOSE; Start 12/10/16 at 05:30 Dextrose (D50w Syringe) 50 ml Q15M PRN IV DECREASED GLUCOSE; Start 12/10/16 at 05:30 Glucagon (Glucagen) 1 mg Q15M PRN IM DECREASED GLUCOSE; Start 12/10/16 at 05:30 Glucose (Glutose) 15 gm Q15M PRN BUCCAL DECREASED GLUCOSE; Start 12/10/16 at 05 :30 Influenza Virus Vaccine (Fluzone) 0.5 ml ONCE ONCE IM* ; Start 12/12/16 at 09:00 ; Stop 12/12/16 at 09:01 VENUS HODGES MD Dec 10, 2016 09:56
--- NOTE | 2016-12-10 10:35 | CONS ---
Date/Time of Note Date/Time of Note DATE: 12/10/16 TIME: 10:34 Assessment/Plan Assessment/Plan Additional Assessment/Plan 60 yo female with 1) Hyponatremia 2) Elevated Lipase, Pancreatitis 3) Chronic HTN, Controlled 4) DM without renal complication 5) Hypomagnesemia Na has already improved 119>125 F/u Urine studies Repeat Lipase level Likely 2nd elevated ADH in the setting of Pain stimulus, Vomiting and increased free H20 Intake Will order Mg supplement, Pt will need IVFs, cont gentle NS Will cont to monitor UO, Electrolytes closely Pt is asymptomatic, No need for Hypertonic saline. Consultation Date/Type/Reason Admit Date/Time Dec 09, 2016 at 23:58 Date of Consultation: Dec 10, 2016 Type of Consultation: Renal Reason for Consultation Hyponatremia Referring Provider: AMARI LOZANO Hx of Present Illness 60-year-old female with a history of chronic hypertension, type 2 diabetes without renal disease, dyslipidemia who presented to the emergency department with complaint of dizziness and weakness. Pt was found in outpt clinic to have serum level of 119. Patient stated that over the past several weeks, patient had been feeling weak, dizzy and with nausea vomiting. She could only keep water down. No changes in mental status reported and no hx of seizure activity. CT of the head done today showed no acute findings. Sodium found to be 119 and most recent 125 this am. Patient does not have any new complaints, Pt is currently receiving IVFs, NS Constitutional: No requiring O2 Eyes: no complaints ENT: no complaints Respiratory: no complaints Cardiovascular: no complaints Gastrointestinal: nausea, vomiting Genitourinary: no complaints Musculoskeletal: no complaints Skin: no complaints Neurologic: dizziness Endocrine: polydypsia Lymphatic: no complaints Psychological: no complaints Immunologic: no complaints Past Medical History Medical History: diabetes, hypertension Past Surgical History Past Surgical Hx: no surgical history Family History Significant Family History: no pertinent family hx Social History Alcohol Use: none Smoking Status: Never smoker Drug Use: none Exam/Review of Systems Vital Signs Vitals Vital Signs Date Time Temp Pulse Resp B/P Pulse Ox O2 Delivery O2 Flow Rate FiO2 12/10/16 08:35 81 12/10/16 07:45 97.5 20 108/60 95 12/10/16 03:58 Room Air Exam Constitutional: alert, oriented, No distress Psych: nl mood/affect, No anxiety Head: atraumatic, normocephalic Eyes: EOMI, nl conjunctiva ENMT: mucosa pink and moist Neck: supple, No jvd Respiratory: clear to auscultation, normal air movement, No diminished breath sounds, No labored breathing Cardiovascular: regular rate and rhythm, No edema Gastrointestinal: non-tender, soft, No distended, No rebound or guarding Musculoskeletal: nl extremities to inspection Extremities: No edema Neurological: SALES OFFICE COORDINATOR II-XII intact, nl mental status, nl speech, nl strength, No confused, No focal weakness, No lethargic Skin: nl turgor, No diaphoresis, No rash or lesions Results Result Diagram: 12/10/16 0801 12/10/16 0801 Results 24 hrs Laboratory Tests Test 12/09/16 21:54 12/10/16 00:15 12/10/16 04:35 12/10/16 07:52 White Blood Count 12.1 H Red Blood Count 4.16 L Hemoglobin 13.3 Hematocrit 35.8 L Mean Corpuscular Volume 86.1 Mean Corpuscular Hemoglobin 32.0 Mean Corpuscular Hemoglobin Concent 37.2 H Red Cell Distribution Width 11.2 L Platelet Count 286 # Mean Platelet Volume 10.2 Neutrophils % 68.4 Lymphocytes % 22.2 Monocytes % 7.2 Eosinophils % 1.2 Basophils % 0.5 Nucleated Red Blood Cells % 0.0 Neutrophils # 8.3 H Lymphocytes # 2.7 Monocytes # 0.9 Eosinophils # 0.1 Basophils # 0.1 Nucleated Red Blood Cells # 0.0 Sodium Level 119 *L Potassium Level 3.6 Chloride Level 82 L Carbon Dioxide Level 26 Anion Gap 15 Blood Urea Nitrogen 17 Creatinine 0.72 Glucose Level 142 Calcium Level 10.0 Total Bilirubin 0.3 Direct Bilirubin 0.00 Indirect Bilirubin 0.3 Aspartate Amino Transf (AST/SGOT) 25 Alanine Aminotransferase (ALT/SGPT) 37 Alkaline Phosphatase 76 Troponin I < 0.012 Total Protein 8.3 H Albumin 4.6 Globulin 3.70 H Albumin/Globulin Ratio 1.24 Lipase 655 H Urine Color STRAW Urine Clarity CLEAR Urine pH 5.0 Urine Specific [place] 1.005 Urine Ketones NEGATIVE Urine Nitrite NEGATIVE Urine Bilirubin NEGATIVE Urine Urobilinogen NEGATIVE Urine Leukocyte Esterase NEGATIVE Urine Hemoglobin NEGATIVE Urine Glucose NEGATIVE Urine Total Protein NEGATIVE Bedside Glucose 127 150 Test 12/10/16 08:01 12/10/16 08:30 White Blood Count 8.2 # Red Blood Count 3.69 L Hemoglobin 11.8 L Hematocrit 32.1 L Mean Corpuscular Volume 87.0 Mean Corpuscular Hemoglobin 32.0 Mean Corpuscular Hemoglobin Concent 36.8 Red Cell Distribution Width 11.3 L Platelet Count 241 Mean Platelet Volume 9.9 Neutrophils % 74.2 Lymphocytes % 16.6 Monocytes % 7.4 Eosinophils % 1.2 Basophils % 0.4 Nucleated Red Blood Cells % 0.0 Neutrophils # 6.1 Lymphocytes # 1.4 Monocytes # 0.6 Eosinophils # 0.1 Basophils # 0.0 Nucleated Red Blood Cells # 0.0 Sodium Level 125 L Potassium Level 3.6 Chloride Level 90 L Carbon Dioxide Level 27 Anion Gap 12 Blood Urea Nitrogen 14 Creatinine 0.79 Glucose Level 140 Hemoglobin A1c 7.7 H Uric Acid 5.4 Calcium Level 9.0 Magnesium Level 1.5 L Total Bilirubin 0.3 Direct Bilirubin 0.00 Indirect Bilirubin 0.3 Aspartate Amino Transf (AST/SGOT) 21 Alanine Aminotransferase (ALT/SGPT) 39 Alkaline Phosphatase 49 Total Protein 6.8 # Albumin 3.7 Globulin 3.10 Albumin/Globulin Ratio 1.19 Triglycerides Level 137 Cholesterol Level 147 LDL Cholesterol, Calculated 88 HDL Cholesterol 32 L Cholesterol/HDL Ratio 4.5 Urine Random Sodium 26 L Urine Random Potassium 10.2 L Imaging Free Text/Dictation PROCEDURE: XR Chest. CLINICAL INDICATION: Headache. TECHNIQUE: AP view of the chest was obtained. COMPARISON: None available FINDINGS: The cardiomediastinal silhouette is within normal limits. The lungs are clear. No signs of pleural fluid or pneumothorax are seen. The osseous structures and soft tissues are unremarkable. IMPRESSION: 1. No evidence for active cardiopulmonary disease. RPTAT: HGAS .Raleigh Khoury MD, Date Time Electronically viewed and signed by .Raleigh Khoury MD, on 12/09/2016 23: 07 .S/ CC: VENUS EDUARDO PROCEDURE: CT Head without. CLINICAL INDICATION: Headache. TECHNIQUE: The study was performed utilizing a multi-slice, multidetector CT scanner. Direct spiral 1 mm axial sections were obtained through the head without the use of intravenous contrast material. 1 or more of the following dose reduction techniques were utilized: Automated exposure control, adjustment of the mA and/or kV according to patient's size, iterative reconstruction technique. Coronal and sagittal reformations were obtained. The images were reviewed on a PACS workstation. RADIATION DOSE: CTDIvol: 44.6 mGy DLP: 720.2 mGy-cm COMPARISON: No prior studies are available for comparison. FINDINGS: There is a mild amount of motion artifact and in the mid cranial vault, with mild initiation at this level. There is no intracranial hemorrhage, extra-axial fluid collection, mass lesion, midline shift or hydrocephalus. The ventricles, sulci and cisterns are within normal limits. The white matter is unremarkable. The mcmillan-white matter differentiation is preserved. The basal cisterns are patent. The midline structures are intact. The orbits, calvarium and extracranial soft tissues are normal in appearance. The visualized paranasal sinuses, mastoid air cells and middle ear cavities are normally aerated. IMPRESSION: 1. No acute intracranial abnormality. No intracranial hemorrhage, extra-axial fluid collection, mass lesion or hydrocephalous. RPTAT: HGAS .Raleigh Khoury MD, MD Date Time Electronically viewed and signed by .Raleigh Khoury MD, MD on 12/09/2016 23: 07 Medications Medications Current Medications Sodium Chloride (NS) 1,000 ml @ 100 mls/hr Q10H IV Last administered on 05:32; Admin Dose 100 MLS/HR; Start 12/10/16 at 04:19 Lorazepam (Ativan) 0.5 mg Q6H PRN IV ANXIETY; Start 12/10/16 at 04:30 Ondansetron HCl (Zofran Inj) 4 mg Q6H PRN IV NAUSEA AND/OR VOMITING; Start at 04:30 Aspirin (Aspirin) 81 mg DAILY PO Last administered on 12/10/16 09:23; Admin Dose 81 MG; Start 12/10/16 at 09:00 Acetaminophen (Tylenol Tab) 650 mg Q6H PRN PO PAIN LEVEL 1-3 OR FEVER; Start at 04:30 Morphine Sulfate (morphine) 2 mg Q4H PRN IV PAIN LEVEL 7-10; Start 12/10/16 at 04:30 Diagnostic Test (Pha) (Accu-Chek) 1 ea 02 XX ; Start 12/11/16 at 02:00 Insulin Glargine (Lantus) 12 unit DAILY@08 SC ; Start 12/10/16 at 08:00 Lisinopril (Zestril) 40 mg DAILY PO Last administered on 12/10/16t 09:23; Admin Dose 40 MG; Start 12/10/16 at 09:00 Atorvastatin Calcium (Lipitor) 10 mg QHS PO ; Start 12/10/16 at 21:00 Diagnostic Test (Pha) (Accu-Chek) 1 ea 02 XX ; Start 12/11/16 at 02:00 Miscellaneous Information 1 ea NOTE XX ; Start 12/10/16 at 05:30 Glucose (Glutose) 15 gm Q15M PRN PO DECREASED GLUCOSE; Start 12/10/16 at 05:30 Glucose (Glutose) 22.5 gm Q15M PRN PO DECREASED GLUCOSE; Start 12/10/16 at 05: 30 Dextrose (D50w Syringe) 25 ml Q15M PRN IV DECREASED GLUCOSE; Start 12/10/16 at 05:30 Dextrose (D50w Syringe) 50 ml Q15M PRN IV DECREASED GLUCOSE; Start 12/10/16 at 05:30 Glucagon (Glucagen) 1 mg Q15M PRN IM DECREASED GLUCOSE; Start 12/10/16 at 05:30 Glucose (Glutose) 15 gm Q15M PRN BUCCAL DECREASED GLUCOSE; Start 12/10/16 at 05 :30 Influenza Virus Vaccine (Fluzone) 0.5 ml ONCE ONCE IM* ; Start 12/12/16 at 09:00 ; Stop 12/12/16 at 09:01 LILIANA MANNING MD Dec 10, 2016 10:35
[2016-12-10] MEDS ORDERED: MAGNESIUM SULFATE 1 GM/D5W 100 ML IVPB ONE (14:30)
--- NOTE | 2016-12-10 16:41 | PN ---
Date/Time of Note Date/Time of Note DATE: 12/10/16 TIME: 16:32 Assessment/Plan VTE Prophylaxis VTE Prophylaxis Intervention: SCD's Lines/Catheters IV Catheter Type (from Nrsg): Peripheral IV Urinary Cath still in place: No Assessment/Plan Assessment/Plan 1. Hyponatremia, due to poor intake for one week and nausea induced SIADH, improving with IVF 2. Hypertension, controlled 3. Type 2 diabetes, on insulins 5. Dyslipidemia, Continue statin Subjective 24 Hr Interval Summary Free Text/Dictation better appetite, stronger Exam/Review of Systems Vital Signs Vitals Vital Signs Date Time Temp Pulse Resp B/P Pulse Ox O2 Delivery O2 Flow Rate FiO2 12/10/16 16:29 98.0 76 19 119/61 99 12/10/16 03:58 Room Air Exam Constitutional: alert, oriented, well developed Psych: nl mood/affect, no complaints Head: atraumatic, normocephalic Eyes: EOMI, PERRL, nl conjunctiva, nl lids, nl sclera ENMT: nl external ears & nose, nl lips & teeth, nl nasal mucosa & septum Neck: non-tender, supple Respiratory: clear to auscultation, normal air movement, No congested cough, No crackles/rales, No diminished breath sounds, No intercostal retraction, No labored breathing, No other, No respirations, No tactile fremitus, No wheezing Cardiovascular: nl pulses, regular rate and rhythm, No S3, No S4, No bruits, No diastolic murmur, No edema, No gallop, No irregular rhythm, No jugular venous distention (JVD), No murmurs/extra sounds, No other, No rub, No systolic murmur Gastrointestinal: nl liver, spleen, non-tender, soft, No ascites, No bowel sounds, No distended, No firm, No hepatomegaly, No mass , No other, No rebound or guarding, No splenomegaly, No surgical scars, No tender Musculoskeletal: nl extremities to inspection Extremities: normal pulses, No calf tenderness, No clubbing, No cyanosis, No edema, No other, No palpable cord, No pitting pedal edema, No tenderness Neurological: NEWSPAPER EDITOR II-XII intact, nl mental status, nl speech, nl strength Skin: nl turgor Lymph: nl lymph nodes Results Result Diagram: 12/10/16 0812/10/16 0801 Results 24 hrs Laboratory Tests Test 12/09/16 21:54 12/10/16 00:15 12/10/16 04:35 12/10/16 07:52 White Blood Count 12.1 H Red Blood Count 4.16 L Hemoglobin 13.3 Hematocrit 35.8 L Mean Corpuscular Volume 86.1 Mean Corpuscular Hemoglobin 32.0 Mean Corpuscular Hemoglobin Concent 37.2 H Red Cell Distribution Width 11.2 L Platelet Count 286 # Mean Platelet Volume 10.2 Neutrophils % 68.4 Lymphocytes % 22.2 Monocytes % 7.2 Eosinophils % 1.2 Basophils % 0.5 Nucleated Red Blood Cells % 0.0 Neutrophils # 8.3 H Lymphocytes # 2.7 Monocytes # 0.9 Eosinophils # 0.1 Basophils # 0.1 Nucleated Red Blood Cells # 0.0 Sodium Level 119 *L Potassium Level 3.6 Chloride Level 82 L Carbon Dioxide Level 26 Anion Gap 15 Blood Urea Nitrogen 17 Creatinine 0.72 Glucose Level 142 Calcium Level 10.0 Total Bilirubin 0.3 Direct Bilirubin 0.00 Indirect Bilirubin 0.3 Aspartate Amino Transf (AST/SGOT) 25 Alanine Aminotransferase (ALT/SGPT) 37 Alkaline Phosphatase 76 Troponin I < 0.012 Total Protein 8.3 H Albumin 4.6 Globulin 3.70 H Albumin/Globulin Ratio 1.24 Lipase 655 H Urine Color STRAW Urine Clarity CLEAR Urine pH 5.0 Urine Specific [place] 1.005 Urine Ketones NEGATIVE Urine Nitrite NEGATIVE Urine Bilirubin NEGATIVE Urine Urobilinogen NEGATIVE Urine Leukocyte Esterase NEGATIVE Urine Hemoglobin NEGATIVE Urine Glucose NEGATIVE Urine Total Protein NEGATIVE Bedside Glucose 127 150 Test 12/10/16 08:01 12/10/16 08:30 12/10/16 11:54 White Blood Count 8.2 # Red Blood Count 3.69 L Hemoglobin 11.8 L Hematocrit 32.1 L Mean Corpuscular Volume 87.0 Mean Corpuscular Hemoglobin 32.0 Mean Corpuscular Hemoglobin Concent 36.8 Red Cell Distribution Width 11.3 L Platelet Count 241 Mean Platelet Volume 9.9 Neutrophils % 74.2 Lymphocytes % 16.6 Monocytes % 7.4 Eosinophils % 1.2 Basophils % 0.4 Nucleated Red Blood Cells % 0.0 Neutrophils # 6.1 Lymphocytes # 1.4 Monocytes # 0.6 Eosinophils # 0.1 Basophils # 0.0 Nucleated Red Blood Cells # 0.0 Sodium Level 125 L Potassium Level 3.6 Chloride Level 90 L Carbon Dioxide Level 27 Anion Gap 12 Blood Urea Nitrogen 14 Creatinine 0.79 Glucose Level 140 Hemoglobin A1c 7.7 H Osmolality 262 L Uric Acid 5.4 Calcium Level 9.0 Magnesium Level 1.5 L Total Bilirubin 0.3 Direct Bilirubin 0.00 Indirect Bilirubin 0.3 Aspartate Amino Transf (AST/SGOT) 21 Alanine Aminotransferase (ALT/SGPT) 39 Alkaline Phosphatase 49 Total Protein 6.8 # Albumin 3.7 Globulin 3.10 Albumin/Globulin Ratio 1.19 Triglycerides Level 137 Cholesterol Level 147 LDL Cholesterol, Calculated 88 HDL Cholesterol 32 L Cholesterol/HDL Ratio 4.5 Urine Osmolality 185 L Urine Random Sodium 26 L Urine Random Potassium 10.2 L Bedside Glucose 178 Medications Medications Current Medications Sodium Chloride (NS) 1,000 ml @ 100 mls/hr Q10H IV Last administered on 14:59; Admin Dose 100 MLS/HR; Start 12/10/16 at 04:19 Lorazepam (Ativan) 0.5 mg Q6H PRN IV ANXIETY; Start 12/10/16 at 04:30 Ondansetron HCl (Zofran Inj) 4 mg Q6H PRN IV NAUSEA AND/OR VOMITING; Start at 04:30 Aspirin (Aspirin) 81 mg DAILY PO Last administered on 12/10/16 09:23; Admin Dose 81 MG; Start 12/10/16 at 09:00 Acetaminophen (Tylenol Tab) 650 mg Q6H PRN PO PAIN LEVEL 1-3 OR FEVER; Start at 04:30 Morphine Sulfate (morphine) 2 mg Q4H PRN IV PAIN LEVEL 7-10; Start 12/10/16 at 04:30 Diagnostic Test (Pha) (Accu-Chek) 1 ea 02 XX ; Start 12/11/16 at 02:00 Insulin Glargine (Lantus) 12 unit DAILY@08 SC ; Start 12/10/16 at 08:00 Lisinopril (Zestril) 40 mg DAILY PO Last administered on 12/10/16 09:23; Admin Dose 40 MG; Start 12/10/16 at 09:00 Atorvastatin Calcium (Lipitor) 10 mg QHS PO ; Start 12/10/16 at 21:00 Diagnostic Test (Pha) (Accu-Chek) 1 ea 02 XX ; Start 12/11/16 at 02:00 Miscellaneous Information 1 ea NOTE XX ; Start 12/10/16 at 05:30 Glucose (Glutose) 15 gm Q15M PRN PO DECREASED GLUCOSE; Start 12/10/16 at 05:30 Glucose (Glutose) 22.5 gm Q15M PRN PO DECREASED GLUCOSE; Start 12/10/16 at 05: 30 Dextrose (D50w Syringe) 25 ml Q15M PRN IV DECREASED GLUCOSE; Start 12/10/16 at 05:30 Dextrose (D50w Syringe) 50 ml Q15M PRN IV DECREASED GLUCOSE; Start 12/10/16 at 05:30 Glucagon (Glucagen) 1 mg Q15M PRN IM DECREASED GLUCOSE; Start 12/10/16 at 05:30 Glucose (Glutose) 15 gm Q15M PRN BUCCAL DECREASED GLUCOSE; Start 12/10/16 at 05 :30 Influenza Virus Vaccine (Fluzone) 0.5 ml ONCE ONCE IM* ; Start 12/12/16 at 09:00 ; Stop 12/12/16 at 09:01 MICHAEL DUNN MD Dec 10, 2016 16:41
[2016-12-10] MEDS: ATORVASTATIN 10 MG TAB PO SCH (20:56)
[2016-12-11] VITALS (11 sets, daily range): BP systolic 97–123; BP diastolic 62–95; PULSE 65–75; RESP 17–18
[2016-12-11] MEDS: SOD CHLORIDE 0.9% 1,000 ML IV SCH ×3 (00:30→20:27)
[2016-12-11] MEDS: ACCU-CHEK XX SCH ×4 (02:00→20:27)
[2016-12-11 08:18] LABS: BASOPHILS % 0.4 % (0.0-2.0); EOSINOPHILS # 0.1 10^3/ul (0.0-0.5); EOSINOPHILS % 1.7 % (0.0-7.0); HEMATOCRIT 33.3 % (37.0-47.0); HEMOGLOBIN 11.7 g/dl (12.0-16.0); LYMPHOCYTES # 1.3 10^3/ul (0.8-2.9); LYMPHOCYTES % 19.1 % (15.0-51.0); MEAN CORPUSCULAR HEMOGLOBIN 31.2 pg (29.0-33.0); MEAN CORPUSCULAR HGB CONC 35.1 g/dl (32.0-37.0); MEAN CORPUSCULAR VOLUME 88.8 fl (82.0-101.0); MEAN PLATELET VOLUME 10.2 fl (7.4-10.4); MONOCYTE # 0.5 10^3/ul (0.3-0.9); MONOCYTES % 7.4 % (0.0-11.0); NEUTROPHILS % 71.1 % (39.0-77.0); PLATELET COUNT 233 10^3/UL (140-415); RED BLOOD COUNT 3.75 10^6/ul (4.20-5.40); RED CELL DISTRIBUTION WIDTH 11.9 % (11.5-14.5)
[2016-12-11] MEDS: ASPIRIN 81 MG TAB PO SCH (08:34)
[2016-12-11] MEDS: LISINOPRIL 20 MG TAB PO SCH (08:34)
[2016-12-11] MEDS: INSULIN ASPART [NOVOLOG] 3 ML PEN SC SCH ×4 (08:38→20:26)
[2016-12-11] MEDS: INSULIN GLARGINE [LANtus] 3 ML PEN SC SCH (08:39)
[2016-12-11 08:42] LABS: CALCIUM 8.5 mg/dl (8.4-10.2); CREATININE 0.73 mg/dl (0.44-1.00); MAGNESIUM 1.6 mg/dl (1.7-2.5); PHOSPHORUS 2.7 mg/dl (2.5-4.9); POTASSIUM 3.9 mmol/L (3.5-5.1)
--- NOTE | 2016-12-11 10:43 | RADRPT ---
Echocardiogram Report Patient Name: LENNY WALLACE Gender: Female Date: 1955 Study Date: 10-Dec-2016 Academic Administrator: Ramiro Kim [facility] Location: [id number] Ref. Physician: VENUS HODGES Quality: Good Procedures: Transthoracic echocardiogram with complete 2D, M-Mode, and doppler examination. Indications: Dizziness. 2D/M Mode Doppler Measurement Value Normal Ranges Measurement Value Normal Ranges LVIDd 2D 4.3 3.5 - 5.6 cm AV Peak Leandro 1.8 m/sec LVIDs 2D 2.2 2.1 - 4.1 cm AV Peak PG 12.0 mmHg FS 2D 49.2 % LVOT Peak Leandro 1.2 m/sec LVPWd 2D 1.0 0.6 - 1.1 cm LVOT Peak PG 5.0 mmHg IVSd 2D 1.0 0.6 - 1.1 cm MV E Peak Leandro 0.7 m/sec IVS/LVPW 2D 1.0 MV A Peak Leandro 1.1 m/sec AoR Diam 2D 2.5 2.0 - 3.7 cm MV E/A 0.6 LA/Ao 2D 1 0 - 1 MV Decel Time 257 msec EDV 2D 80.1 cm3 MV E/A 0.6 ESV 2D 10.5 cm3 TR Peak Leandro 2.3 m/sec LA Dimen 2D 3.2 2.3 - 4.0 cm TR Peak PG 20.0 mmHg RVSP 23.0 mmHg Findings Left Ventricle: Normal left ventricular systolic function. Normal left ventricular cavity size. Normal left ventricular wall thickness. Ejection fraction is visually estimated at 65 %. Tissue Doppler/Mitral Doppler indices are consistent with impaired relaxation (Stage I diastolic dysfunction). Right Ventricle: Normal right ventricular size. Normal right ventricular systolic function. Left Atrium: The left atrium is normal in size. Right Atrium: The right atrium is normal in size. Mitral Valve: Mitral valve leaflets appear mildly thickened. Mild mitral annular calcification. Trace mitral regurgitation. Aortic Valve: Normal appearance of the aortic valve. No significant aortic stenosis or insufficiency. Tricuspid Valve: Normal appearance of the tricuspid valve. Estimated peak PA systolic pressure 23 mmHg. There is trace tricuspid regurgitation. Pulmonic Valve: Normal pulmonic valve appearance. Pericardium: Normal pericardium with no significant pericardial effusion. Aorta: Normal aortic root. IVC: Normal size and normal respiratory collapse consistent with normal right atrial pressure. Conclusions 1.Normal left ventricular systolic function. Normal left ventricular cavity size. Normal left ventricular wall thickness. Ejection fraction is visually estimated at 65 %. Tissue Doppler/Mitral Doppler indices are consistent with impaired relaxation (Stage I diastolic dysfunction). 2.Normal appearance of the tricuspid valve. Estimated peak PA systolic pressure 23 mmHg. There is trace tricuspid regurgitation. 3.Mitral valve leaflets appear mildly thickened. Mild mitral annular calcification. Trace mitral regurgitation. Electronically Signed By: Azael Youssef 11-Dec-2016 10:43:05 -[id number] Patient Name: LENNY WALLACE Study Date: 10-Dec-2016 [id number]
[2016-12-11] MEDS ORDERED: MAGNESIUM SULFATE 1 GM/D5W 100 ML IVPB SCH (12:30)
[2016-12-11] MEDS ORDERED: MAGNESIUM SULFATE 2 GM/50 ML 50 ML IVPB ONE (14:00)
--- NOTE | 2016-12-11 14:24 | PN ---
Date/Time of Note Date/Time of Note DATE: 12/11/16 TIME: 14:17 Assessment/Plan VTE Prophylaxis VTE Prophylaxis Intervention: LMWH Lines/Catheters IV Catheter Type (from Nrs): Peripheral IV Urinary Cath still in place: No Assessment/Plan Assessment/Plan 1. Hyponatremia, due to poor intake for one week and nausea induced SIADH, improving with IVF, follow up with Na 2. Hypertension, controlled 3. Type 2 diabetes, on insulins 4. Dyslipidemia, Continue statin 5. High lipase on admission, unlikely pancreatitis clinically, check US Subjective 24 Hr Interval Summary Free Text/Dictation no nausea or vomiting. no abdominal pain Exam/Review of Systems Vital Signs Vitals Vital Signs Date Time Temp Pulse Resp B/P Pulse Ox O2 Delivery O2 Flow Rate FiO2 12/11/16 12:12 75 12/11/16 11:45 98.1 17 123/95 100 12/10/16 03:58 Room Air Intake and Output 12/10/16 12/10/16 12/11/16 15:00 23:00 07:00 Intake Total 1000 ml 1100 ml 300 ml Balance 1000 ml 1100 ml 300 ml Exam Constitutional: alert, oriented, well developed Psych: nl mood/affect, no complaints Head: atraumatic, normocephalic Eyes: EOMI, PERRL, nl conjunctiva, nl lids, nl sclera ENMT: nl external ears & nose, nl lips & teeth, nl nasal mucosa & septum Neck: non-tender, supple Respiratory: clear to auscultation, normal air movement, No congested cough, No crackles/rales, No diminished breath sounds, No intercostal retraction, No labored breathing, No other, No respirations, No tactile fremitus, No wheezing Cardiovascular: nl pulses, regular rate and rhythm, No S3, No S4, No bruits, No diastolic murmur, No edema, No gallop, No irregular rhythm, No jugular venous distention (JVD), No murmurs/extra sounds, No other, No rub, No systolic murmur Gastrointestinal: nl liver, spleen, non-tender, soft, No ascites, No bowel sounds, No distended, No firm, No hepatomegaly, No mass , No other, No rebound or guarding, No splenomegaly, No surgical scars, No tender Musculoskeletal: nl extremities to inspection Extremities: normal pulses, No calf tenderness, No clubbing, No cyanosis, No edema, No other, No palpable cord, No pitting pedal edema, No tenderness Neurological: ASSOCIATE MATERIAL HANDLER II-XII intact, nl mental status, nl speech, nl strength Skin: nl turgor Results Result Diagram: 12/11/16 0708 12/11/16 0708 Results 24 hrs Laboratory Tests Test 12/10/16 17:58 12/10/16 20:19 12/11/16 02:05 12/11/16 07:08 Bedside Glucose 152 295 H 139 White Blood Count 7.0 Red Blood Count 3.75 L Hemoglobin 11.7 L Hematocrit 33.3 L Mean Corpuscular Volume 88.8 Mean Corpuscular Hemoglobin 31.2 Mean Corpuscular Hemoglobin Concent 35.1 Red Cell Distribution Width 11.9 Platelet Count 233 Mean Platelet Volume 10.2 Neutrophils % 71.1 Lymphocytes % 19.1 Monocytes % 7.4 Eosinophils % 1.7 Basophils % 0.4 Nucleated Red Blood Cells % 0.0 Neutrophils # 5.0 Lymphocytes # 1.3 Monocytes # 0.5 Eosinophils # 0.1 Basophils # 0.0 Nucleated Red Blood Cells # 0.0 Sodium Level 130 L Potassium Level 3.9 Chloride Level 99 Carbon Dioxide Level 24 Anion Gap 11 Blood Urea Nitrogen 12 Creatinine 0.73 Glucose Level 140 Calcium Level 8.5 Phosphorus Level 2.7 Magnesium Level 1.6 L Test 12/11/16 07:31 12/11/16 11:25 Bedside Glucose 151 163 Medications Medications Current Medications Sodium Chloride (NS) 1,000 ml @ 100 mls/hr Q10H IV Last administered on 00:30; Admin Dose 100 MLS/HR; Start 12/10/16 at 04:19 Lorazepam (Ativan) 0.5 mg Q6H PRN IV ANXIETY; Start 12/10/16 at 04:30 Ondansetron HCl (Zofran Inj) 4 mg Q6H PRN IV NAUSEA AND/OR VOMITING; Start at 04:30 Aspirin (Aspirin) 81 mg DAILY PO Last administered on 12/11/16 08:34; Admin Dose 81 MG; Start 12/10/16 at 09:00 Acetaminophen (Tylenol Tab) 650 mg Q6H PRN PO PAIN LEVEL 1-3 OR FEVER; Start at 04:30 Morphine Sulfate (morphine) 2 mg Q4H PRN IV PAIN LEVEL 7-10; Start 12/10/16 at 04:30 Diagnostic Test (Pha) (Accu-Chek) 1 ea 02 XX ; Start 12/11/16 at 02:00 Insulin Glargine (Lantus) 12 unit DAILY@08 SC Last administered on 12/11/16 08 :39; Admin Dose 12 UNIT; Start 12/10/16 at 08:00 Lisinopril (Zestril) 40 mg DAILY PO Last administered on 12/11/16 08:34; Admin Dose 40 MG; Start 12/10/16 at 09:00 Atorvastatin Calcium (Lipitor) 10 mg QHS PO Last administered on 12/10/16 20: 56; Admin Dose 10 MG; Start 12/10/16 at 21:00 Diagnostic Test (Pha) (Accu-Chek) 1 ea 02 XX ; Start 12/11/16 at 02:00 Miscellaneous Information 1 ea NOTE XX ; Start 12/10/16 at 05:30 Glucose (Glutose) 15 gm Q15M PRN PO DECREASED GLUCOSE; Start 12/10/16 at 05:30 Glucose (Glutose) 22.5 gm Q15M PRN PO DECREASED GLUCOSE; Start 12/10/16 at 05: 30 Dextrose (D50w Syringe) 25 ml Q15M PRN IV DECREASED GLUCOSE; Start 12/10/16 at 05:30 Dextrose (D50w Syringe) 50 ml Q15M PRN IV DECREASED GLUCOSE; Start 12/10/16 at 05:30 Glucagon (Glucagen) 1 mg Q15M PRN IM DECREASED GLUCOSE; Start 12/10/16 at 05:30 Glucose (Glutose) 15 gm Q15M PRN BUCCAL DECREASED GLUCOSE; Start 12/10/16 at 05 :30 Influenza Virus Vaccine 0.5 ml 0.5 ml ONCE ONCE IM* ; Start 12/12/16 at 09:00; Stop 12/12/16 at 09:01 Magnesium Sulfate (Magnesium Sulfate 2 Gm/50 ml) 50 ml @ 25 mls/hr ONCE ONCE IVPB ; Start 12/11/16 at 14:00; Stop 12/11/16 at 15:59 MICHAEL DUNN MD Dec 11, 2016 14:24
--- NOTE | 2016-12-11 17:16 | CONS ---
Date/Time of Note Date/Time of Note DATE: 12/11/16 TIME: 17:16 Assessment/Plan Assessment/Plan Additional Assessment/Plan 60 yo female with 1) Hyponatremia 2) Elevated Lipase, Pancreatitis 3) Chronic HTN, Controlled 4) DM without renal complication 5) Hypomagnesemia Na has already improved 119>125>130 Likely 2nd elevated ADH in the setting of Pain stimulus, Vomiting and increased free H20 Intake Will order Mg supplement, Pt will need IVFs, cont gentle NS Will cont to monitor UO, Electrolytes closely Pt is asymptomatic, No need for Hypertonic saline. Consultation Date/Type/Reason Admit Date/Time Dec 09, 2016 at 23:58 Initial Consult Date 12/10/16 Type of Consultation: Renal Referring Provider: AMARI LOZANO 24 HR Interval Summary Free Text/Dictation No new complaints Constitutional: No requiring O2 Exam/Review of Systems Vital Signs Vitals Vital Signs Date Time Temp Pulse Resp B/P Pulse Ox O2 Delivery O2 Flow Rate FiO2 12/11/16 16:25 70 12/11/16 15:46 98.1 18 97/62 96 12/10/16 03:58 Room Air Intake and Output 12/10/16 12/10/16 12/11/16 15:00 23:00 07:00 Intake Total 1000 ml 1100 ml 300 ml Balance 1000 ml 1100 ml 300 ml Exam Constitutional: alert, oriented, No distress ENMT: mucosa pink and moist Neck: No jvd Respiratory: clear to auscultation Cardiovascular: regular rate and rhythm, No edema Gastrointestinal: soft Neurological: ENGINEERING ANALYST II-XII intact, nl mental status, No confused, No lethargic Skin: No diaphoresis Results Result Diagram: 12/11/16 0708 12/11/16 0708 Results 24 hrs Laboratory Tests Test 12/10/16 17:58 12/10/16 20:19 12/11/16 02:05 12/11/16 07:08 Bedside Glucose 152 295 H 139 White Blood Count 7.0 Red Blood Count 3.75 L Hemoglobin 11.7 L Hematocrit 33.3 L Mean Corpuscular Volume 88.8 Mean Corpuscular Hemoglobin 31.2 Mean Corpuscular Hemoglobin Concent 35.1 Red Cell Distribution Width 11.9 Platelet Count 233 Mean Platelet Volume 10.2 Neutrophils % 71.1 Lymphocytes % 19.1 Monocytes % 7.4 Eosinophils % 1.7 Basophils % 0.4 Nucleated Red Blood Cells % 0.0 Neutrophils # 5.0 Lymphocytes # 1.3 Monocytes # 0.5 Eosinophils # 0.1 Basophils # 0.0 Nucleated Red Blood Cells # 0.0 Sodium Level 130 L Potassium Level 3.9 Chloride Level 99 Carbon Dioxide Level 24 Anion Gap 11 Blood Urea Nitrogen 12 Creatinine 0.73 Glucose Level 140 Calcium Level 8.5 Phosphorus Level 2.7 Magnesium Level 1.6 L Test 12/11/16 07:31 12/11/16 11:25 12/11/16 17:01 Bedside Glucose 151 163 177 Medications Medications Current Medications Sodium Chloride (NS) 1,000 ml @ 100 mls/hr Q10H IV Last administered on 00:30; Admin Dose 100 MLS/HR; Start 12/10/16 at 04:19 Lorazepam (Ativan) 0.5 mg Q6H PRN IV ANXIETY; Start 12/10/16 at 04:30 Ondansetron HCl (Zofran Inj) 4 mg Q6H PRN IV NAUSEA AND/OR VOMITING; Start at 04:30 Aspirin (Aspirin) 81 mg DAILY PO Last administered on 12/11/16 08:34; Admin Dose 81 MG; Start 12/10/16 at 09:00 Acetaminophen (Tylenol Tab) 650 mg Q6H PRN PO PAIN LEVEL 1-3 OR FEVER; Start at 04:30 Morphine Sulfate (morphine) 2 mg Q4H PRN IV PAIN LEVEL 7-10; Start 12/10/16 at 04:30 Diagnostic Test (Pha) (Accu-Chek) 1 ea 02 XX ; Start 12/11/16 at 02:00 Insulin Glargine (Lantus) 12 unit DAILY@08 SC Last administered on 12/11/16 08 :39; Admin Dose 12 UNIT; Start 12/10/16 at 08:00 Lisinopril (Zestril) 40 mg DAILY PO Last administered on 12/11/16 08:34; Admin Dose 40 MG; Start 12/10/16 at 09:00 Atorvastatin Calcium (Lipitor) 10 mg QHS PO Last administered on 12/10/16 20: 56; Admin Dose 10 MG; Start 12/10/16 at 21:00 Diagnostic Test (Pha) (Accu-Chek) 1 ea 02 XX ; Start 12/11/16 at 02:00 Miscellaneous Information 1 ea NOTE XX ; Start 12/10/16 at 05:30 Glucose (Glutose) 15 gm Q15M PRN PO DECREASED GLUCOSE; Start 12/10/16 at 05:30 Glucose (Glutose) 22.5 gm Q15M PRN PO DECREASED GLUCOSE; Start 12/10/16 at 05: 30 Dextrose (D50w Syringe) 25 ml Q15M PRN IV DECREASED GLUCOSE; Start 12/10/16 at 05:30 Dextrose (D50w Syringe) 50 ml Q15M PRN IV DECREASED GLUCOSE; Start 12/10/16 at 05:30 Glucagon (Glucagen) 1 mg Q15M PRN IM DECREASED GLUCOSE; Start 12/10/16 at 05:30 Glucose (Glutose) 15 gm Q15M PRN BUCCAL DECREASED GLUCOSE; Start 12/10/16 at 05 :30 Influenza Virus Vaccine (Fluzone) 0.5 ml ONCE ONCE IM* ; Start 12/12/16 at 09:00 ; Stop 12/12/16 at 09:01 LILIANA MANNING MD Dec 11, 2016 17:16
[2016-12-11] MEDS: ATORVASTATIN 10 MG TAB PO SCH (20:26)
[2016-12-12] VITALS: PULSE 61
[2016-12-12] MEDS: SOD CHLORIDE 0.9% 1,000 ML IV SCH (01:30)
[2016-12-12 04:11] VITALS: PULSE 63
[2016-12-12 07:41] LABS: CALCIUM 8.5 mg/dl (8.4-10.2); CREATININE 0.67 mg/dl (0.44-1.00); POTASSIUM 4.4 mmol/L (3.5-5.1)
[2016-12-12 07:50] VITALS: BP 117/67; RESP 20
[2016-12-12] MEDS: INSULIN ASPART [NOVOLOG] 3 ML PEN SC SCH ×2 (07:53→12:21)
[2016-12-12] MEDS: INSULIN GLARGINE [LANtus] 3 ML PEN SC SCH (07:53)
[2016-12-12 08:11] VITALS: PULSE 67
[2016-12-12] MEDS ORDERED: INFLUENZA VIRUS VACCINE 0.5 ML (DISPENSING) IM* ONE (09:00)
--- NOTE | 2016-12-12 09:24 | RADRPT ---
PROCEDURE: US Abdomen and retroperitoneal complete. CLINICAL INDICATION: Elevated LFTs TECHNIQUE: Multiple real-time images were acquired of the patient's abdomen and retroperitoneum ut ilizing a high resolution transducer. COMPARISON: US ABDOMEN 11/26/2016 FINDINGS: The liver demonstrates increased echogenicity. The liver is normal in size and no focal solid lesio ns are seen. The portal vein is patent with normal direction of flow. No intrahepatic biliary dila tation is seen. The liver measures 16.2 cm in length. No gallstones are identified within the gallbladder. There is no pericholecystic fluid or gallbladd er wall thickening. The common bile duct measures 4.4 mm in maximal dimension. The visualized portions of the pancreas are unremarkable. The tail of the pancreas is not seen. The spleen is normal in size. The spleen measures 9.8 cm in length. No free fluid is identified. The kidneys are normal in size, and demonstrate normal cortical echogenicity and cortical thickness. The right kidney measures 11.0 cm. The left kidney measures 12.1 cm. There is no evidence of hyd ronephrosis. There are no kidney stones. The proximal aorta measures 2.4 cm in transverse dimension. RPTAT: AA IMPRESSION: Fatty infiltration of the liver. No evidence of gallstones. .Celestino Schmidt MD, MD Date Time Electronically viewed and signed by .Celestino Schmidt MD, MD on 12/12/2016 09:24 .S/
[2016-12-12] MEDS: ASPIRIN 81 MG TAB PO SCH (09:32)
[2016-12-12] MEDS: LISINOPRIL 20 MG TAB PO SCH (09:33)
[2016-12-12 11:36] VITALS: BP 128/70; RESP 20
[2016-12-12 12:13] VITALS: PULSE 67
--- NOTE | 2016-12-12 14:58 | DS ---
Date/Time of Note Date/Time of Note DATE: 12/12/16 TIME: 14:54 Discharge Summary Admission/Discharge Info Admit Date/Time Dec 09, 2016 at 23:58 Discharge Date/Time Discharge Diagnosis 1. Hyponatremia, due to poor intake for one week and nausea induced SIADH, improved, follow up with Na 2. Hypertension, controlled 3. Type 2 diabetes, on insulins 4. Dyslipidemia, Continue statin 5. High lipase on admission, negative abdominal US Patient Condition: Stable Hx of Present Illness This is a 60-year-old female with a history of hypertension, type 2 diabetes, dyslipidemia who presented to the emergency department after she was sent from clinic for hyponatremia. Over the past several weeks, patient had been feeling weak, dizzy as long as gait instability. She was actually seen in our ER twice over the past 2 weeks and at one time she was diagnosed with UTI. She was seen in the clinic where she was found to have a sodium of 116 and sent here for evaluation. About 2 weeks ago here, sodium was 137. CT of the head done today showed no acute findings. Sodium is 119, WBC 12,000. Hospital Course The hyponatremia is considered dehydration from poor intake but only water for one week and nausea related. It is significantly improved with IVF and improvement of oral intake. Na is 132 on 12/12/2016. Lipase was 655 on admission. Patient does not have abdominal pain. US no gallstones. TG 137. Pancreatitis is unlikely clinically. Home Meds Reported Medications Sitagliptin Phos/Metformin HCl (Janumet 50-1,000 mg Tablet) 1 Each Tablet, 1 EACH PO BID, TAB 12/09/16 Aspirin (Aspir-Low) 81 Mg Tablet., 81 MG PO DAILY 12/09/16 Simvastatin* (Zocor*) 20 Mg Tablet, 20 MG PO QHS, #30 TAB 12/09/16 Glipizide* (Glipizide*) 10 Mg Tablet, 10 MG PO AC BREAKFAST DINNER, TAB 12/09/16 Lisinopril* (Lisinopril*) 40 Mg Tablet, 40 MG PO DAILY, #30 TAB 12/09/16 Discontinued Scripts Meclizine Hcl* (Meclizine Hcl*) 25 Mg Tablet, 25 MG PO Q8H Y for DIZZINESS, #21 TAB Prov:ALEJANDRA PENA MD 9/14/17 Ondansetron (Ondansetron Odt) 4 Mg Tab.rapdis, 4 MG PO Q6H Y for NAUSEA AND/OR VOMITING, #10 TAB Prov:CORAL HERNANDEZ MD 11/26/16 Ibuprofen* (Motrin*) 600 Mg Tab, 600 MG PO Q8, #30 TAB Prov:CORAL HERNANDEZ MD 11/26/16 Cephalexin* (Keflex*) 500 Mg Capsule, 500 MG PO QID for 7 Days, CAP Prov:CORAL HERNANDEZ MD 11/26/16 Follow-up Plan PCP in one week Primary Care Provider Katlyn Eduardo Pending Labs Laboratory Tests Test 12/11/16 17:01 12/11/16 20:09 12/12/16 06:51 12/12/16 07:48 Bedside Glucose 177mg/dL (70-220) 157mg/dL (70-220) 137mg/dL (70-220) Sodium Level 132mmol/L (135-144) Potassium Level 4.4mmol/L (3.5-5.1) Chloride Level 104mmol/L (97-110) Carbon Dioxide Level 24mmol/L (21-31) Anion Gap 8 (8-16) Blood Urea Nitrogen 10mg/dl (7-20) Creatinine 0.67mg/dl (0.44-1.00) Glucose Level 134mg/dl (70-220) Calcium Level 8.5mg/dl (8.4-10.2) Test 12/12/16 12:15 Bedside Glucose 163mg/dL (70-220) MICHAEL DUNN MD Dec 12, 2016 14:58
== END 2016-12-12 15:20 | disposition home or self-care (01) | DRG 640 ==
LOC: E/R 18:22 → MS4 23:58
PROVIDERS: ADMIT Hospitalist; ATTEND Hospitalist
DX: E87.1 Hypo-osmolality and hyponatremia (principal); K85.90 Acute pancreatitis without necrosis or infection, unspecified; E83.42 Hypomagnesemia; I10 Essential (primary) hypertension; E11.9 Type 2 diabetes mellitus without complications; E78.5 Hyperlipidemia, unspecified; Z79.82 Long term (current) use of aspirin; R42 Dizziness and giddiness
CPT/HCPCS: 36415; 70450; 71010; 76700; 80048; 80053; 80061; 81003; 82436; 82962; 83036; 83690; 83735; 83930; 83935; 84100; 84133; 84300; 84484; 84560; 85025; 90686; 93005; 93306; 97161; J1815; J2270; J3475; J7030; J7040